=== PATIENT | male | born 1960 | race Caucasian/White ===

== ENCOUNTER 2019-02-13 09:54 | Outpatient (RCR) | payer BC, OTHER | END 2019-03-19 | disposition home or self-care (01) | LOC: ONC 09:54 | PROVIDERS: ATTEND Radiology Radiation Oncology | DX: Z51.0 Encounter for antineoplastic radiation therapy (principal); C32.8 Malignant neoplasm of overlapping sites of larynx | CPT/HCPCS: 36415; 77300; 77301; 77334; 77336; 77338; 77386; 77470; 84443; 99202; 99204 ==

== ENCOUNTER → 2019-06-19 | Outpatient (CLI) | payer BC, OTHER | LOC: EDSTATUS 03-20 10:21 → ONC 09:45 | PROVIDERS: ATTEND Radiology Radiation Oncology | DX: C32.8 Malignant neoplasm of overlapping sites of larynx (principal); Z90.02 Acquired absence of larynx | CPT/HCPCS: 99213 ==

== ENCOUNTER → 2020-01-22 | Outpatient (CLI) | payer BC, MEDICAID, OTHER | LOC: ONC 10:17 | PROVIDERS: ATTEND Radiology Radiation Oncology | DX: C32.8 Malignant neoplasm of overlapping sites of larynx (principal); Z90.02 Acquired absence of larynx | CPT/HCPCS: 99212 ==